=== PATIENT | female | born 1995 | race Caucasian/White ===

== ENCOUNTER 2017-04-17 11:41 | Emergency (ER) | payer OTHER ==
[2017-04-17 12:02] VITALS: RESP 16; TEMP 98.4
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
[2017-04-17 13:29] VITALS: BP 108/72; PULSE 60; O2SAT 99
== END 2017-04-17 14:34 | disposition home or self-care (01) ==
DX: S06.0X0A Concussion without loss of consciousness, initial encounter (principal); S43.005A Unspecified dislocation of left shoulder joint, initial encounter; V13.4XXA Pedal cycle driver injured in collision with car, pick-up truck or van in traffic accident, initial encounter; Y92.410 Unspecified street and highway as the place of occurrence of the external cause; Y99.8 Other external cause status; Y93.55 Activity, bike riding